=== PATIENT | male | born 1960 | race African-American/Black ===

== ENCOUNTER 2016-12-27 09:35 | Inpatient (IN) | payer OTHER ==
[2016-12-27 10:38] VITALS: BMI 21.6
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
[2016-12-27] MEDS ORDERED: MAG HYDROX/AL HYDROX/SIMETH 30 ML UNIT-DOSE CUP PO PRN (14:20)
[2016-12-27] MEDS ORDERED: guaiFENesin/D-METHORPHAN HB 10 ML UNIT-DOSE CUPS PO PRN (14:20)
[2016-12-27] MEDS ORDERED: NICOTINE POLACRILEX 2 MG GUM BUC PRN (14:20)
[2016-12-27] MEDS ORDERED: IBUPROFEN 400 MG TABLET (FP) PO PRN (14:20)
[2016-12-27] MEDS ORDERED: LOPERAMIDE HCL 2 MG CAPSULE PO PRN (14:20)
[2016-12-27] MEDS ORDERED: MENTHOL/PHENOL 1 EACH UD MM PRN (14:20)
[2016-12-27] MEDS ORDERED: MAGNESIUM CITRATE 300 ML BOTTLE PO PRN (14:20)
[2016-12-27] MEDS ORDERED: ACETAMINOPHEN 325 MG TABLET (FP) PO PRN (14:20)
[2016-12-27] MEDS ORDERED: diphenhydrAMINE HCL 50 MG CAPSULE PO PRN (14:20)
[2016-12-27] MEDS ORDERED: P-EPHED 60MG/TRIPROLIDI 2.5MG TABLET PO PRN (14:20)
[2016-12-27] MEDS ORDERED: MAGNESIUM HYDROX 2400MG/30ML ORAL SUSPENSION 30 ML CUP PO PRN (14:20)
[2016-12-27] MEDS: NICOTINE 14 MG/24 HOURS TOPICAL PATCH TD SCH (14:50)
[2016-12-27 20:02] LABS: MCH 28.5 pg (25.7-33.7); MCHC 32.4 g/dl (32.0-35.9); MEAN CELL VOLUME 88.1 fl (80-96); MEAN PLT VOLUME 9.3 fl (7.5-11.1); PLATELET COUNT 206 K/MM3 (134-434); RDW 13.6 % (11.9-15.9); WHITE BLOOD COUNT 7.7 K/mm3 (4.0-10.0)
[2016-12-27 20:04] LABS: URINE APPEARANCE CLEAR; URINE BILIRUBIN NEGATIVE (NEGATIVE); URINE BLOOD NEGATIVE (NEGATIVE); URINE COLOR YELLOW; URINE GLUCOSE (UA) NEGATIVE (NEGATIVE); URINE KETONE NEGATIVE (NEGATIVE); URINE LEUK ESTERASE NEGATIVE (NEGATIVE); URINE NITRITE NEGATIVE (NEGATIVE); URINE PROTEIN NEGATIVE (NEGATIVE); URINE UROBILINOGEN NEGATIVE E.U./dl (0.2-1.0)
[2016-12-27 20:17] LABS: SICKLE CELL SCREEN NEGATIVE (NEGATIVE)
[2016-12-27 20:31] LABS: ALBUMIN 3.5 g/dl (3.4-5.0); ANION GAP 6 (8-16); BILIRUBIN,TOTAL 0.5 mg/dL (0.2-1.0); CALCIUM 9.1 mg/dL (8.5-10.1); CO2 29 mmol/L (21-32); CREATININE 1.2 mg/dL (0.7-1.3); GLUCOSE,RANDOM 96 mg/dL (74-106); SGOT/AST 44 U/L (15-37); SGPT/ALT 54 U/L (12-78)
[2016-12-27 20:32] LABS: ALK PHOS 97 U/L (45-117)
[2016-12-27] MEDS: MIRTAZAPINE 15 MG TABLET (FP) PO SCH (21:15)
[2016-12-27] MEDS: THIAMINE HCL 100 MG TABLET (FP) PO SCH (21:15)
[2016-12-27] MEDS: PHENYTOIN NA EXTENDED 100 MG CAPSULE (FP) PO SCH (21:15)
[2016-12-28] MEDS ORDERED: METHADONE HCL 40 MG DISPERSABLE TABLET ONE (04:01)
[2016-12-28] MEDS ORDERED: METHADONE HCL 10 MG TABLET ONE (04:01)
[2016-12-28] MEDS ORDERED: METHADONE HCL 10 MG TABLET PO SCH (06:00)
[2016-12-28] MEDS: METHADONE 40 MG, METHADONE 20 MG PO SCH (06:25)
[2016-12-28] MEDS: PHENYTOIN NA EXTENDED 100 MG CAPSULE (FP) PO SCH ×3 (06:25→21:01)
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
--- NOTE | 2016-12-28 09:47 | EKG ---
Test Reason : Blood Pressure : / mmHG Vent. Rate : 052 BPM Atrial Rate : 052 BPM P-R Int : 144 ms QRS Dur : 102 ms QT Int : 504 ms P-R-T Axes : 074 062 082 degrees QTc Int : 468 ms SINUS BRADYCARDIA T WAVE ABNORMALITY, CONSIDER ANTERIOR ISCHEMIA PROLONGED QT ABNORMAL ECG Confirmed by ADA DOAN MD ([id number]) on 12/28/2016 9:47:34 AM Referred By: Confirmed By:ADA DOAN MD
[2016-12-28] MEDS: ARIPiprazole 10 MG TABLET PO SCH (10:05)
[2016-12-28] MEDS: levETIRAcetam 500 MG TABLET (FP) PO SCH (10:05)
[2016-12-28] MEDS: PRENATAL VITAMINS W/ FOLIC ACID TABLET (FP) PO SCH (10:05)
[2016-12-28] MEDS: NICOTINE 14 MG/24 HOURS TOPICAL PATCH TD SCH (10:06)
[2016-12-28 12:43] LABS: HIV 1 & 2 AB NEGATIVE; HIV 1 AGp24 NEGATIVE
[2016-12-28] MEDS: MIRTAZAPINE 15 MG TABLET (FP) PO SCH (21:01)
[2016-12-28] MEDS: THIAMINE HCL 100 MG TABLET (FP) PO SCH (21:01)
[2016-12-29] MEDS ORDERED: METHADONE HCL 10 MG TABLET ONE (05:52)
[2016-12-29] MEDS ORDERED: METHADONE HCL 40 MG DISPERSABLE TABLET ONE (05:52)
[2016-12-29] MEDS: PHENYTOIN NA EXTENDED 100 MG CAPSULE (FP) PO SCH ×3 (06:30→21:35)
[2016-12-29] MEDS: METHADONE 40 MG, METHADONE 20 MG PO SCH (06:30)
[2016-12-29] MEDS: PRENATAL VITAMINS W/ FOLIC ACID TABLET (FP) PO SCH (09:44)
[2016-12-29] MEDS: NICOTINE 14 MG/24 HOURS TOPICAL PATCH TD SCH (09:45)
[2016-12-29] MEDS: levETIRAcetam 500 MG TABLET (FP) PO SCH (09:45)
[2016-12-29] MEDS: ARIPiprazole 10 MG TABLET PO SCH (09:45)
[2016-12-29] MEDS: MIRTAZAPINE 15 MG TABLET (FP) PO SCH (21:35)
[2016-12-29] MEDS: THIAMINE HCL 100 MG TABLET (FP) PO SCH (21:35)
[2016-12-30] MEDS ORDERED: METHADONE HCL 40 MG DISPERSABLE TABLET ONE (02:10)
[2016-12-30] MEDS ORDERED: METHADONE HCL 10 MG TABLET ONE (02:10)
[2016-12-30] MEDS: METHADONE 40 MG, METHADONE 20 MG PO SCH (06:15)
[2016-12-30] MEDS: PHENYTOIN NA EXTENDED 100 MG CAPSULE (FP) PO SCH ×3 (06:16→21:10)
[2016-12-30] MEDS: PRENATAL VITAMINS W/ FOLIC ACID TABLET (FP) PO SCH (09:37)
[2016-12-30] MEDS: ARIPiprazole 10 MG TABLET PO SCH (09:37)
[2016-12-30] MEDS: levETIRAcetam 500 MG TABLET (FP) PO SCH (09:37)
[2016-12-30] MEDS: NICOTINE 14 MG/24 HOURS TOPICAL PATCH TD SCH (09:37)
[2016-12-30] MEDS: THIAMINE HCL 100 MG TABLET (FP) PO SCH (21:09)
[2016-12-30] MEDS: MIRTAZAPINE 15 MG TABLET (FP) PO SCH (21:10)
[2016-12-31] MEDS ORDERED: METHADONE HCL 10 MG TABLET ONE (04:08)
[2016-12-31] MEDS ORDERED: METHADONE HCL 40 MG DISPERSABLE TABLET ONE (04:08)
[2016-12-31] MEDS: PHENYTOIN NA EXTENDED 100 MG CAPSULE (FP) PO SCH ×3 (06:24→21:16)
[2016-12-31] MEDS: METHADONE 40 MG, METHADONE 20 MG PO SCH (06:24)
[2016-12-31] MEDS: PRENATAL VITAMINS W/ FOLIC ACID TABLET (FP) PO SCH (09:34)
[2016-12-31] MEDS: ARIPiprazole 10 MG TABLET PO SCH (09:34)
[2016-12-31] MEDS: levETIRAcetam 500 MG TABLET (FP) PO SCH (09:34)
[2016-12-31] MEDS: NICOTINE 14 MG/24 HOURS TOPICAL PATCH TD SCH (09:34)
[2016-12-31] MEDS: MIRTAZAPINE 15 MG TABLET (FP) PO SCH (21:16)
[2016-12-31] MEDS: THIAMINE HCL 100 MG TABLET (FP) PO SCH (21:16)
[2017-01-01] MEDS ORDERED: METHADONE HCL 40 MG DISPERSABLE TABLET ONE (03:58)
[2017-01-01] MEDS ORDERED: METHADONE HCL 10 MG TABLET ONE (03:58)
[2017-01-01] MEDS: METHADONE 40 MG, METHADONE 20 MG PO SCH (05:55)
[2017-01-01] MEDS: PHENYTOIN NA EXTENDED 100 MG CAPSULE (FP) PO SCH ×3 (05:56→21:14)
[2017-01-01 06:38] VITALS: BP 139/89; PULSE 50; TEMP 98.8
[2017-01-01] MEDS: PRENATAL VITAMINS W/ FOLIC ACID TABLET (FP) PO SCH (09:44)
[2017-01-01] MEDS: ARIPiprazole 10 MG TABLET PO SCH (09:44)
[2017-01-01] MEDS: levETIRAcetam 500 MG TABLET (FP) PO SCH (09:44)
[2017-01-01] MEDS: NICOTINE 14 MG/24 HOURS TOPICAL PATCH TD SCH (09:45)
[2017-01-01] MEDS: THIAMINE HCL 100 MG TABLET (FP) PO SCH (21:14)
[2017-01-01] MEDS: MIRTAZAPINE 15 MG TABLET (FP) PO SCH (21:14)
--- NOTE | 2017-01-02 00:10 | PN ---
[facility] Progress Note Note: Pt. did not want to complete rehab and walked off the unit before the MEDICAL INSURANCE CLAIMS SPECIALIST arrived.
== END 2017-01-01 22:45 | disposition left against medical advice (07) | DRG 770 ==
LOC: YASAS 09:35 → Y3W 12:50
PROVIDERS: ADMIT Psychiatry & Neurology Psychiatry; ATTEND Psychiatry & Neurology Psychiatry
PROC: HZ42ZZZ Group Counseling for Substance Abuse Treatment, Cognitive-Behavioral (ICD-10-PCS; principal; 2016-12-27)
DX: F10.20 Alcohol dependence, uncomplicated (principal); F11.20 Opioid dependence, uncomplicated; F14.20 Cocaine dependence, uncomplicated; F17.210 Nicotine dependence, cigarettes, uncomplicated; F33.9 Major depressive disorder, recurrent, unspecified; F19.24 Other psychoactive substance dependence with psychoactive substance-induced mood disorder; B18.2 Chronic viral hepatitis C; R76.11 Nonspecific reaction to tuberculin skin test without active tuberculosis
CPT/HCPCS: 36415; 71020-TC; 80053; 81003; 85027; 85660; 86593; 87389; 93005; 93010

== ENCOUNTER 2017-01-30 09:55 | Emergency (ER) | payer OTHER ==
[2017-01-30 10:00] VITALS: BMI 22.3
--- NOTE | 2017-01-30 10:25 | PDOC ---
History of Present Illness - General History Source: Patient Exam Limitations: No Limitations - History of Present Illness Initial Comments: 01/30/17 11:38 The patient is a 56 year old male, with a significant past medical history of seizure disorders (On Keppra and Dilantin), who presents to the emergency department complaining of lightheadedness since earlier this morning. The patient admits he consumed Cocaine and drank some beer 6-7 hours ago and has been feeling lightheaded since. Patient reports he last took his Keppra and Dilantin 2-3 days ago, because he was getting high. Patient denies any headache, weakness, or changes in vision. He denies any abdominal pain, nausea, vomiting, diarrhea, or constipation. He denies any chest pain, shortness of breath, diaphoresis, palpitations, or lower extremity edema. Allergies: NKDA Past Surgical History: Right elbow Social History: Cocaine use and ETOH use. Current everyday smoker. PCP: Dr. Hunt <Jose Guadalupe Lira - Last Filed: 01/30/17 14:07> <Fidencio Friend - Last Filed: 01/30/17 14:51> - General Chief Complaint: Lightheaded Stated Complaint: LIGHTHEADED Time Seen by Provider: 01/30/17 10:24 Past History <Jose Guadalupe Lira - Last Filed: 01/30/17 14:07> - Past Medical History Anemia: No Asthma: No Cardiac Disorders: No CVA: No COPD: No Diabetes: No GI Disorders: No Disorders: No HTN: No Hypercholesterolemia: No Kidney Stones: No Suicide Attempt (Hx): No (DENIES) Seizures: Yes (DUE TO HEAD TRUAMA.) Thyroid Disease: No - Surgical History Orthopedic Surgery: Yes (RIGHT ELBOW SX 05/14/98) - Reproductive History Testicular Surgery: No - Psycho/Social/Smoking Cessation Hx Anxiety: Yes Suicidal Ideation: No Smoking History: Current every day smoker Have you smoked in the past 12 months: Yes Number of Cigarettes Smoked Daily: 20 Information on smoking cessation initiated: Yes 'Breaking Loose' booklet given: 01/30/17 Hx Alcohol Use: Yes (DAILY BEER) Drug/Substance Use Hx: No Substance Use Type: Cocaine Hx Substance Use Treatment: Yes (Attends [facility]) <Fidencio Friend - Last Filed: 01/30/17 14:51> - Past Medical History Allergies/Adverse Reactions: Allergies Allergy/AdvReac Type Severity Reaction Status Date / Time No Known Allergies Allergy Verified 01/30/17 09:59 Home Medications: Ambulatory Orders Levetiracetam [Keppra -] 500 mg PO BID 12/27/16 Phenytoin Na Extended [Dilantin -] 100 mg PO TID 12/27/16 Review of Systems - Review of Systems Able to Perform ROS?: Yes Comments:: 01/30/17 11:39 GENERAL/CONSTITUTIONAL: No fever or chills. No weakness. HEAD, EYES, EARS, NOSE AND THROAT: No change in vision. No ear pain or discharge. No sore throat. CARDIOVASCULAR: No chest pain or shortness of breath. RESPIRATORY: No cough, wheezing, or hemoptysis. GASTROINTESTINAL: No nausea, vomiting, diarrhea or constipation. GENITOURINARY: No dysuria, frequency, or change in urination. MUSCULOSKELETAL: No joint or muscle swelling or pain. No neck or back pain. SKIN: No rash NEUROLOGIC: Yes: +lightheadedness. No headache, vertigo, loss of consciousness, or change in strength/sensation. ENDOCRINE: No increased thirst. No abnormal weight change. HEMATOLOGIC/LYMPHATIC: No anemia, easy bleeding, or history of blood clots. ALLERGIC/IMMUNOLOGIC: No hives or skin allergy. <Jose Guadalupe Lira - Last Filed: 01/30/17 14:07> *Physical Exam - Vital Signs Last Vital Signs Temp Pulse Resp BP Pulse Ox 98.1 F 51 L 20 111/58 97 01/30/17 09:56 01/30/17 09:56 01/30/17 09:56 01/30/17 09:56 01/30/17 09:56 - Physical Exam Comments: 01/30/17 11:39 GENERAL: Awake, alert, and fully oriented, in no acute distress HEAD: No signs of trauma EYES: PERRLA, EOMI, sclera anicteric, conjunctiva clear ENT: Auricles normal inspection, hearing grossly normal, nares patent, oropharynx clear without exudates. Moist mucosa NECK: Normal ROM, supple, no lymphadenopathy, JVD, or masses LUNGS: Breath sounds equal, clear to auscultation bilaterally. No wheezes, and no crackles HEART: Regular rate and rhythm, normal S1 and S2, no murmurs, rubs or gallops ABDOMEN: Soft, nontender, normoactive bowel sounds. No guarding, no rebound. No masses EXTREMITIES: Normal range of motion, no edema. No clubbing or cyanosis. No cords , erythema, or tenderness NEUROLOGICAL: Cranial nerves II through XII grossly intact. Normal speech, normal gait SKIN: Warm, Dry, normal turgor, no rashes or lesions noted. <Jose Guadalupe Lira - Last Filed: 01/30/17 14:07> - Vital Signs Last Vital Signs Temp Pulse Resp BP Pulse Ox 98.1 F 51 L 20 111/58 97 01/30/17 09:56 01/30/17 09:56 01/30/17 09:56 01/30/17 09:56 01/30/17 09:56 <Fidencio Friend - Last Filed: 01/30/17 14:51> Heart Score/ECG Review - ECG Intrepretation Comment:: 01/30/17 11:58 Vent Rate: 38 bpm IMPRESSION: Marked sinus bradycardia. ST and T wave abnormality. <Jose Guadalupe Lira - Last Filed: 01/30/17 14:07> ED Treatment Course - LABORATORY CBC & Chemistry Diagram: 01/30/17 10:40 01/30/17 12:25 - ADDITIONAL ORDERS Additional order review: Laboratory Results 01/30/17 01/30/17 01/30/17 10:40 10:40 10:40 Urine Color Yellow Urine Appearance Clear Urine pH 5.0 Urine Protein Negative Urine Glucose (UA) Negative Urine Ketones Negative Urine Blood Negative Urine Nitrite Negative Urine Bilirubin Negative Urine Urobilinogen 4.0 e.u/dl Ur Leukocyte Esterase Negative Phenytoin Cancelled Alcohol, Quantitative Cancelled 01/30/17 10:40 RBC 4.66 MCV 88.2 MCHC 32.4 RDW 13.4 MPV 8.9 Neutrophils % 52.5 D Lymphocytes % 40.7 H Monocytes % 5.1 Eosinophils % 0.6 Basophils % 1.1 - RADIOLOGY Radiograph Interpretation: 01/30/17 14:05 EXAM: Head CT INTERPRETED BY: Dr. Schmitz REVIEWED BY: Dr. Friend IMPRESSION: No evidence of acute intracranial hemorrhage. No CT evidence of acute territorial ischemic changes. Linear decrease attenuation, chronic in nature is seen in the anterior right kimmy-insular white matter tracts, to the lesser degree in the anterior limb of right internal capsule. Supratentorial confluent white matter changes may be on the basis of ischemic, demyelinating process, chronic hypertensive encephalopathy, toxic encephalopathy. EXAM: CXR INTERPRETED BY: Dr. Schmitz REVIEWED BY: Dr. Friend IMPRESSION: No evidence of active pulmonary disease. <Jose Guadalupe Lira - Last Filed: 01/30/17 14:07> - LABORATORY CBC & Chemistry Diagram: 01/30/17 10:40 01/30/17 12:25 <Fidencio Friend - Last Filed: 01/30/17 14:51> Medical Decision Making - Medical Decision Making 01/30/17 11:42 Pt will obtain bloodwork and urine to evaluate Cocaine and ETOH levels. He will have an ECG and head CT. <Jose Guadalupe Lira - Last Filed: 01/30/17 14:07> *DC/Admit/Observation/Transfer - Attestations Scribe Attestion: 01/30/17 11:39 Documentation prepared by Jose Guadalupe Lira, acting as medical coder for Fidencio Friend DO. <Jose Guadalupe Lira - Last Filed: 01/30/17 14:07> - Discharge Dispostion Admit: No - Attestations Physician Attestion: 01/30/17 10:25 I, Dr. Fidencio Friend, attest that this document has been prepared under my direction and personally reviewed by me in its entirety. I further attest, that it accurately reflects all work, treatment, procedures and medical decision -making performed by me. <Fidencio Friend - Last Filed: 01/30/17 14:51> Diagnosis at time of Disposition: Alcohol abuse, Cocaine abuse, Methadone dependence, Medically noncompliant Nicotine dependence Qualifiers: Nicotine product type: cigarettes Substance use status: uncomplicated Qualified Code(s): F17.210 - Nicotine dependence, cigarettes, uncomplicated - Discharge Dispostion Disposition: HOME Condition at time of disposition: Improved - Referrals Referrals: Bhavya Hunt [Primary Care Provider] - - Patient Instructions Printed Discharge Instructions: DI for Cocaine Use Disorder, DI for Alcohol Abuse Additional Instructions: Follow up with your doctor in two days time. Return to us if worse or new symptoms occue Best- Dr. Friend
[2017-01-30] MEDS ORDERED: FOLIC ACID INJECTION - 1 MG, THIAMINE HCL 100 MG, MULTIVIT INJECTION ADULT 10 ML in SOD... IVPB ONE (10:29)
[2017-01-30 11:16] LABS: URINE APPEARANCE CLEAR; URINE BILIRUBIN NEGATIVE (NEGATIVE); URINE BLOOD NEGATIVE (NEGATIVE); URINE COLOR YELLOW; URINE GLUCOSE (UA) NEGATIVE (NEGATIVE); URINE KETONE NEGATIVE (NEGATIVE); URINE LEUK ESTERASE NEGATIVE (NEGATIVE); URINE NITRITE NEGATIVE (NEGATIVE); URINE PROTEIN NEGATIVE (NEGATIVE); URINE UROBILINOGEN 4.0 E.U/dl mg/dL (0.2-1.0)
[2017-01-30 11:20] LABS: BASOPHIL 1.1 % (0-2.0); EOSINOPHIL 0.6 % (0-4.5); MCH 28.6 pg (25.7-33.7); MCHC 32.4 g/dl (32.0-35.9); MEAN CELL VOLUME 88.2 fl (80-96); MEAN PLT VOLUME 8.9 fl (7.5-11.1); NEUTROPHILS 52.5 % (42.8-82.8); PLATELET COUNT 186 K/MM3 (134-434); RDW 13.4 % (11.9-15.9); WHITE BLOOD COUNT 6.6 K/mm3 (4.0-10.0)
[2017-01-30 11:34] LABS: INR 1.09 (0.82-1.09)
[2017-01-30 12:17] LABS: URINE MARIJUANA THC NEGATIVE ng/ml (CUTOFF=50)
[2017-01-30 13:24] LABS: ALCOHOL < 5.0 mg/dl (0-5)
[2017-01-30 13:29] LABS: ALBUMIN 3.7 g/dl (3.4-5.0); ANION GAP 7 (8-16); BILIRUBIN,TOTAL 0.5 mg/dL (0.2-1.0); CALCIUM 9.2 mg/dL (8.5-10.1); CO2 27 mmol/L (21-32); CREATININE 1.1 mg/dL (0.7-1.3); GLUCOSE,RANDOM 69 mg/dL (74-106); SGOT/AST 42 U/L (15-37); SGPT/ALT 44 U/L (12-78); TOT PROT 7.4 g/dl (6.4-8.2)
[2017-01-30 13:31] LABS: ALK PHOS 93 U/L (45-117); TROPONIN I < 0.02 ng/ml (0.00-0.05)
[2017-01-30] MEDS ORDERED: PHENYTOIN NA EXTENDED 100 MG CAPSULE (FP) PO ONE (13:50)
[2017-01-30] MEDS ORDERED: levETIRAcetam 500 MG/5 ML INJECTION VIAL IVPB ONE ×2 (13:50→14:16)
[2017-01-30] MEDS ORDERED: PHENYTOIN NA EXTENDED 100 MG CAPSULE (FP) ONE (14:16)
--- NOTE | 2017-01-30 14:46 | EKG ---
Test Reason : Blood Pressure : / mmHG Vent. Rate : 038 BPM Atrial Rate : 038 BPM P-R Int : 152 ms QRS Dur : 094 ms QT Int : 546 ms P-R-T Axes : 071 048 108 degrees QTc Int : 434 ms MARKED SINUS BRADYCARDIA ABNORMAL ECG WHEN COMPARED WITH ECG OF 27-DEC-2016 15:42, INVERTED T WAVES HAVE REPLACED NONSPECIFIC T WAVE ABNORMALITY IN LATERAL LEADS Confirmed by ROBERT ENAMORADO, MIGUEL ÁNGEL ([id number]) on 01/30/2017 2:46:25 PM Referred By: Confirmed By:MIGUEL ÁNGEL JONES MD
[2017-01-30 15:25] VITALS: BP 115/77; PULSE 48; TEMP 98.2
== END 2017-01-30 15:32 | disposition home or self-care (01) ==
LOC: JER 09:55
PROC: 3E033GC Introduction of Other Therapeutic Substance into Peripheral Vein, Percutaneous Approach (ICD-10-PCS; principal; 2017-01-30)
DX: F10.10 Alcohol abuse, uncomplicated (principal); F11.20 Opioid dependence, uncomplicated; Z91.19 Patient's noncompliance with other medical treatment and regimen; F17.210 Nicotine dependence, cigarettes, uncomplicated
CPT/HCPCS: 36415; 70450-TC; 71010-TC; 80053; 80185; 80307; 81003; 82550; 82553; 83880; 84484; 85025; 85610; 93005; 93010; 99283-25

== ENCOUNTER 2017-07-20 09:44 | Emergency (ER) | payer OTHER ==
[2017-07-20 10:03] VITALS: BP 136/73; PULSE 52; TEMP 98.7; BMI 25.7
[2017-07-20] MEDS ORDERED: ACETAMINOPHEN 500 MG TABLET (FP) PO ONE (10:33)
[2017-07-20] MEDS ORDERED: KETOROLAC TROMETHAMINE 60 MG/2 ML VIAL ONE (10:34)
[2017-07-20] MEDS ORDERED: KETOROLAC TROMETHAMINE 60 MG/2 ML VIAL IM ONE (10:38)
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
== END 2017-07-20 11:06 | disposition home or self-care (01) ==
LOC: JERFT 09:44
DX: S13.4XXA Sprain of ligaments of cervical spine, initial encounter (principal); V44.6XXA Car passenger injured in collision with heavy transport vehicle or bus in traffic accident, initial encounter; Y92.481 Parking lot as the place of occurrence of the external cause; Y93.89 Activity, other specified; Y99.8 Other external cause status
CPT/HCPCS: 99281-25

== ENCOUNTER 2023-06-22 09:24 | Emergency (ER) | payer OTHER ==
[2023-06-22 09:32] VITALS: TEMP 97.6; BMI 18.1
[2023-06-22] MEDS ORDERED: SODIUM CHLORIDE 0.9% 500 ML INFUS.BAG IV ONE (10:12)
[2023-06-22 11:13] LABS: BASO % 1.1 % (0-2.0); EOS % 0.3 % (0-4.5); HEMATOCRIT 46.8 % (35.4-49); HEMOGLOBIN 15.5 GM/dL (11.7-16.9); LYMPH % 28.2 % (8-40); MCH 28.5 pg (25.7-33.7); MCHC 33.2 g/dl (32.0-35.9); MEAN CELL VOLUME 85.9 fl (80-96); MEAN PLT VOLUME 7.7 fl (7.5-11.1); MONO % 6.8 % (3.8-10.2); NEUT % 63.6 % (42.8-82.8); PLATELET COUNT 267 10^3/uL (134-434); RBC 5.45 M/mm3 (4.00-5.60); RDW 12.6 % (11.9-15.9)
[2023-06-22 11:20] LABS: INR 1.03 (0.83-1.09); PROTHROMBIN TIME (PATIENT) 11.9 SEC (9.7-13.0)
[2023-06-22 11:32] LABS: POTASSIUM 4.5 mmol/L (3.5-5.1)
[2023-06-22 11:33] LABS: CALCIUM 9.6 mg/dL (8.5-10.1)
[2023-06-22 11:35] LABS: ALBUMIN 4.1 g/dl (3.4-5.0); BLOOD UREA NITROGEN 23.4 mg/dL (7-18); MAGNESIUM 2.2 mg/dL (1.8-2.4)
[2023-06-22 11:39] LABS: BILIRUBIN,TOTAL 0.8 mg/dL (0.2-1); TOT PROT 7.7 g/dl (6.4-8.2)
[2023-06-22 14:55] LABS: URINE APPEARANCE CLEAR; URINE BILIRUBIN NEGATIVE (NEGATIVE); URINE COLOR YELLOW; URINE GLUCOSE (UA) 3+ (NEGATIVE); URINE KETONE TRACE (NEGATIVE); URINE LEUK ESTERASE NEGATIVE (NEGATIVE); URINE NITRITE NEGATIVE (NEGATIVE); URINE PROTEIN NEGATIVE (NEGATIVE)
[2023-06-22 17:38] VITALS: BP 131/89; PULSE 92; RESP 20
== END 2023-06-22 17:37 | disposition home or self-care (01) ==
LOC: JER 09:24
DX: R07.9 Chest pain, unspecified (principal); R10.30 Lower abdominal pain, unspecified; K59.00 Constipation, unspecified; N42.9 Disorder of prostate, unspecified
CPT/HCPCS: 36415; 71045-TC-FY; 74177-TC; 80053; 81003; 82272; 82962; 83690; 83735; 84484; 85025; 85610; 85730; 87086; 93005; 93010; 99285-25

== ENCOUNTER 2024-09-20 16:46 | Inpatient (IN) | payer OTHER ==
[2024-09-20] MEDS ORDERED: ONDANSETRON 4 MG/2 ML VIAL ONE (17:46)
[2024-09-20] MEDS: ONDANSETRON 4 MG/2 ML VIAL IVPUSH ONE (17:57)
[2024-09-20 18:03] LABS: BASO % 1.1 % (0-2.0); EOS % 1.2 % (0-4.5); HEMATOCRIT 40.9 % (35.4-49); HEMOGLOBIN 13.4 GM/dL (11.7-16.9); LYMPH % 39.5 % (8-40); MCH 27.5 pg (25.7-33.7); MCHC 32.8 g/dl (32.0-35.9); MEAN CELL VOLUME 83.8 fl (80-96); MONO % 8.7 % (3.8-10.2); NEUT % 49.5 % (42.8-82.8); PLATELET COUNT 236 10^3/uL (134-434); RBC 4.88 M/mm3 (4.00-5.60); RDW 13.7 % (11.9-15.9); WHITE BLOOD COUNT 6.2 K/mm3 (4.0-10.0)
[2024-09-20 18:11] LABS: INR 1.08 (0.83-1.09); PROTHROMBIN TIME (PATIENT) 11.8 SEC (9.7-13.0)
[2024-09-20 18:14] LABS: ACTIVATED PTT 28.2 SECONDS (25.2-36.5)
[2024-09-20 18:29] LABS: POTASSIUM 3.4 mmol/L (3.5-5.1)
[2024-09-20 18:31] LABS: ALBUMIN 3.6 g/dl (3.4-5.0)
[2024-09-20 18:32] LABS: BLOOD UREA NITROGEN 12.2 mg/dL (7-18)
[2024-09-20 18:34] LABS: CREATININE 0.8 mg/dL (0.55-1.3)
[2024-09-20 18:36] LABS: TOT PROT 7.4 g/dl (6.4-8.2)
[2024-09-20 18:37] LABS: BILIRUBIN,TOTAL 0.6 mg/dL (0.2-1)
[2024-09-20] MEDS ORDERED: HALOPERIDOL LACTATE 5 MG/ML ONE (18:53)
[2024-09-20] MEDS: HALOPERIDOL LACTATE 5 MG/ML IM ONE (18:56)
[2024-09-20] MEDS ORDERED: KCL 10 MEQ IVPB 10 MEQ/100 ML INFUS.BAG IVPB ONE (21:33)
[2024-09-20] MEDS ORDERED: INSULIN ASPART SLIDING SCALE (NOVOLOG) 1 VIAL SQ ONE (21:33)
[2024-09-20] MEDS: INSULIN ASPART SLIDING SCALE (NOVOLOG) 1 VIAL SQ SCH (21:59)
[2024-09-20] MEDS: KCL 10 MEQ IVPB 10 MEQ/100 ML INFUS.BAG IVPB SCH (22:00)
[2024-09-20] MEDS ORDERED: ATORVASTATIN CA 40 MG TABLET (FP) ONE (23:13)
[2024-09-20] MEDS: ATORVASTATIN CA 40 MG TABLET (FP) PO SCH (23:15)
[2024-09-21] MEDS ORDERED: KCL 10 MEQ IVPB 10 MEQ/100 ML INFUS.BAG IVPB ONE
[2024-09-21] MEDS ORDERED: ONDANSETRON 4 MG/2 ML VIAL IVPUSH PRN (02:41)
[2024-09-21 06:29] LABS: BASO % 0.9 % (0-2.0); EOS % 0.4 % (0-4.5); HEMATOCRIT 42.1 % (35.4-49); HEMOGLOBIN 13.6 GM/dL (11.7-16.9); MCH 27.5 pg (25.7-33.7); MCHC 32.2 g/dl (32.0-35.9); MEAN CELL VOLUME 85.3 fl (80-96); MEAN PLT VOLUME 8.1 fl (7.5-11.1); MONO % 7.1 % (3.8-10.2); NEUT % 60.6 % (42.8-82.8); PLATELET COUNT 258 10^3/uL (134-434); RBC 4.94 M/mm3 (4.00-5.60); RDW 13.3 % (11.9-15.9); WHITE BLOOD COUNT 8.2 K/mm3 (4.0-10.0)
[2024-09-21] MEDS ORDERED: PHENYTOIN NA EXTENDED 100 MG CAPSULE (FP) ONE (06:31)
[2024-09-21] MEDS: PHENYTOIN NA EXTENDED 100 MG CAPSULE (FP) PO SCH (06:36)
[2024-09-21 06:49] LABS: POTASSIUM 3.8 mmol/L (3.5-5.1)
[2024-09-21 06:55] LABS: ALBUMIN 3.5 g/dl (3.4-5.0)
[2024-09-21 06:56] LABS: MAGNESIUM 1.9 mg/dL (1.8-2.4)
[2024-09-21 06:58] LABS: PHOSPHOROUS 4.2 mg/dL (2.5-4.9); TOT PROT 7.1 g/dl (6.4-8.2)
[2024-09-21 07:00] LABS: BILIRUBIN,TOTAL 0.8 mg/dL (0.2-1)
[2024-09-21 07:02] LABS: CREATININE 0.7 mg/dL (0.55-1.3)
[2024-09-21] MEDS: levETIRAcetam 500 MG TABLET (FP) PO SCH (09:11)
[2024-09-21] MEDS: ENOXAPARIN NA (PORCINE) 40 MG/0.4 ML DISP.SYRIN SQ SCH (09:11)
[2024-09-21] MEDS: ASPIRIN COATED 81 MG TABLET.EC PO SCH (09:11)
[2024-09-21] MEDS: PANTOPRAZOLE SODIUM 40 MG VIAL IVPUSH SCH (09:12)
[2024-09-21] MEDS: ALLOPURINOL 100 MG TABLET (FP) PO SCH (09:12)
[2024-09-21] MEDS: NICOTINE 7 MG/24 HOURS TOPICAL PATCH TD SCH (09:12)
[2024-09-21] MEDS ORDERED: INSULIN ASPART SLIDING SCALE (NOVOLOG) 1 VIAL SQ ONE (12:45)
[2024-09-21] MEDS: MIRTAZAPINE 15 MG TABLET (FP) PO SCH (21:30)
[2024-09-21 22:39] VITALS: BMI 19.3
[2024-09-22] MEDS: THIAMINE 100 MG TABLET PO SCH (21:50)
[2024-09-23] MEDS: PANTOPRAZOLE 40 MG TABLET PO SCH (09:31)
[2024-09-23 12:47] VITALS: RESP 18
[2024-09-23 14:14] VITALS: BP 104/82; PULSE 84; TEMP 98.2
== END 2024-09-23 13:35 | disposition home or self-care (01) | DRG 312 ==
LOC: JER 16:46 → JERBED 21:08 → J4S 09-21 20:46
PROVIDERS: ADMIT Internal Medicine; ATTEND Internal Medicine
DX: R55 Syncope and collapse (principal); G45.9 Transient cerebral ischemic attack, unspecified; G40.909 Epilepsy, unspecified, not intractable, without status epilepticus; I10 Essential (primary) hypertension; E11.51 Type 2 diabetes mellitus with diabetic peripheral angiopathy without gangrene; F11.10 Opioid abuse, uncomplicated; E78.5 Hyperlipidemia, unspecified; E87.6 Hypokalemia
CPT/HCPCS: 36415; 70450-TC; 70496-TC; 70498-TC; 70551-TC; 80053; 80061; 80177; 80185; 82550; 82553; 82962; 83036; 83615; 83735; 84100; 84146; 84484; 85025; 85610; 85730; 86850; 86900; 86901; 93005; 93010; 93306-TC; 93880-TC; 95816; 97116-GP; 97161-GP; 99291